=== PATIENT | male | born 1995 | race Caucasian/White ===

== ENCOUNTER 2025-03-04 15:19 | Emergency (ER) | payer BC, MEDICAID, OTHER ==
[2025-03-04] MEDS ORDERED: fentaNYL 50 MCG/ML SDV IVPUSH ONE ×3 (15:23→16:50)
[2025-03-04] MEDS ORDERED: Naloxone 0.4 MG/ML SDV IVPUSH PRN (15:23)
[2025-03-04] MEDS ORDERED: Sodium Chloride 0.9% 10 ML Syringe FLUSH PRN (15:24)
[2025-03-04 15:31] LABS: BASOPHILS ABSOLUTE AUTO 0.04 K/uL (0.00-0.20); BASOPHILS PERCENT AUTO 0.1 % (0.0-2.0); EOSINOPHILS ABSOLUTE AUTO 0.12 K/uL (0.00-0.50); EOSINOPHILS PERCENT AUTO 0.4 % (0.0-5.0); IMMATURE GRAN ABSOLUTE AUTO 0.14 10^3/uL (0.00-0.04); IMMATURE GRAN PERCENT AUTO 0.5 % (0.0-0.4); LYMPHOCYTES ABSOLUTE AUTO 3.54 K/uL (0.50-3.50); LYMPHOCYTES PERCENT AUTO 12.8 % (10.0-50.0); MONOCYTES ABSOLUTE AUTO 1.85 K/uL (0.00-1.00); MONOCYTES PERCENT AUTO 6.7 % (2.0-14.0); NEUTROPHILS ABSOLUTE AUTO 21.98 K/uL (1.40-7.00); NEUTROPHILS PERCENT AUTO 79.5 % (45.0-80.0); PLATELET COUNT,PLT 311 K/uL (150-350); RED BLOOD CELL COUNT 4.57 M/uL (4.33-5.41); RED CELL DISTRIBUTION WIDTH 12.7 % (11.2-14.1); WHITE BLOOD CELL COUNT,WBC 27.7 K/uL (4.0-10.2)
[2025-03-04 15:54] LABS: ALANINE AMINOTRANSFERASE,ALT 47 U/L (12-78); ASPARTATE AMNIOTRANSFERASE,AST 48 U/L (15-37); BILIRUBIN TOTAL 0.5 mg/dL (0.2-1.0); BLOOD UREA NITROGEN,BUN 17 mg/dL (7-18); CARBON DIOXIDE,CO2 18.4 mmol/L (21.0-32.0); CHLORIDE,CL 106 mmol/L (98-107); CREATININE 1.16 mg/dL (0.51-1.17); GLUCOSE RANDOM 221 mg/dL (70-99); POTASSIUM,K 3.8 mmol/L (3.5-5.1); PROTEIN TOTAL,TP 7.9 g/dL (6.4-8.2); SODIUM,NA 144 mmol/L (136-145)
[2025-03-04] MEDS ORDERED: Ondansetron 4 MG/2 ML SDV ONE (15:55)
[2025-03-04] MEDS ORDERED: Ondansetron 4 MG/2 ML SDV IVPUSH ONE ×3 (16:06→16:23)
[2025-03-04 16:12] LABS: ESTIMATED GFR 87 mL/min (>=60)
[2025-03-04 16:30] LABS: INR 1.0 (0.9-1.1); PTT,PARTIAL THROMBOPLSTIN TIME 20.5 SEC (23.8-34.4)
== END 2025-03-04 16:54 ==
LOC: LL.ED 15:19
DX: S32.810A Multiple fractures of pelvis with stable disruption of pelvic ring, initial encounter for closed fracture (principal); Z79.899 Other long term (current) drug therapy; Z88.8 Allergy status to other drugs, medicaments and biological substances; V86.95XA Unspecified occupant of 3- or 4- wheeled all-terrain vehicle (ATV) injured in nontraffic accident, initial encounter
CPT/HCPCS: 36415; 71045; 72170; 74018; 80053; 83605; 83690; 85025; 85610; 85730; 96374; 96375; 96376; 99283; 99285-25; J2405; J3010; J7030